=== PATIENT | male | born 1985 | race Caucasian/White ===

== ENCOUNTER 2020-03-21 02:43 | Emergency (ER) | payer OTHER ==
[2020-03-21 02:51] VITALS: PULSE 100
--- NOTE | 2020-03-21 03:28 | ERPHSYRPT ---
- History of Present Illness Time Seen by Provider: 03/21/20 03:05 Source: patient, police Exam Limitations: clinical condition Patient Subjective Stated Complaint: . Triage Nursing Assessment: . Physician History: This is a 35-year-old white male who is brought in by police for medical clearance for alf. Patient does use amphetamines by prescription. However, patient also has been consuming alcohol and operating a car vehicle. Patient denies any complaints at this time. He arrives vital signs are stable. Timing/Duration: today Severity: mild Associated Symptoms: denies symptoms Allergies/Adverse Reactions: No Known Drug Allergies Allergy (Unverified 03/21/20 02:59) Home Medications: Amphet Asp/Amphet/D-Amphet [Adderall Xr 30 mg Capsule] 30 mg PO DAILY 03/21/20 [History] Bupropion HCl [Bupropion Xl] 300 mg PO DAILY 03/21/20 [History] Liraglutide [Saxenda] 03/21/20 [History] Liraglutide [Victoza 2-Floyd] 03/21/20 [History] Lisdexamfetamine Dimesylate [Vyvanse] 70 mg PO DAILY 03/21/20 [History] Topiramate 100 mg PO DAILY 03/21/20 [History] Hx Tetanus, Diphtheria Vaccination/Date Given: Yes Hx Influenza Vaccination/Date Given: Yes (fall 2019) Hx Pneumococcal Vaccination/Date Given: No Immunizations Up to Date: Yes Travel Risk - International Travel Have you traveled outside of the country in past 3 weeks: No - Coronavirus Screening Are you exhibiting any of the following symptoms?: No Close contact with a COVID-19 positive Pt in past 14-21 Days: No - Review of Systems Constitutional: No Symptoms Eyes: No Symptoms Ears, Nose, & Throat: No Symptoms Respiratory: No Symptoms Cardiac: No Symptoms Abdominal/Gastrointestinal: No Symptoms Genitourinary Symptoms: No Symptoms Musculoskeletal: No Symptoms Skin: No Symptoms Neurological: Other (Intoxication) Psychological: Other (Intoxication) Endocrine: No Symptoms Hematologic/Lymphatic: No Symptoms Immunological/Allergic: No Symptoms All Other Systems: Reviewed and Negative - Past Medical History Pertinent Past Medical History: Yes Neurological History: No Pertinent History ENT History: No Pertinent History Cardiac History: No Pertinent History Respiratory History: No Pertinent History Endocrine Medical History: No Pertinent History Musculoskeletal History: No Pertinent History GI Medical History: No Pertinent History History: Other Psycho-Social History: Attention Deficit Disorder, Bipolar, Depression Male Reproductive Disorders: No Pertinent History Other Medical History: Kidney stones, skin cancer- basel cell carcinoma, psoriasis - Past Surgical History Past Surgical History: Yes Neuro Surgical History: No Pertinent History Cardiac: No Pertinent History Respiratory: No Pertinent History Gastrointestinal: No Pertinent History Genitourinary: No Pertinent History Musculoskeletal: No Pertinent History Male Surgical History: No Pertinent History Other Surgical History: skin CA removal - Social History Smoking Status: Never smoker Exposure to second hand smoke: No Drug Use: marijuana Patient Lives Alone: No - Nursing Vital Signs Nursing Vital Signs: Initial Vital Signs Temperature 97.7 F 03/21/20 02:49 Pulse Rate 100 H 03/21/20 02:49 Respiratory Rate 20 03/21/20 02:49 Blood Pressure 120/77 03/21/20 02:49 O2 Sat by Pulse Oximetry 100 03/21/20 02:49 Pain Scale Pain Intensity 0 - Physical Exam General Appearance: alert, anxiety Eye Exam: PERRL/EOMI, eyes nml inspection Ears, Nose, Throat Exam: normal ENT inspection, moist mucous membranes Neck Exam: normal inspection, non-tender, supple, full range of motion Respiratory Exam: normal breath sounds, lungs clear, airway intact, No chest tenderness, No respiratory distress Cardiovascular Exam: regular rate/rhythm, normal heart sounds, normal peripheral pulses Gastrointestinal/Abdomen Exam: soft, normal bowel sounds, No tenderness Rectal Exam: not done Back Exam: normal inspection, normal range of motion, No CVA tenderness, No vertebral tenderness Extremity Exam: normal inspection, normal range of motion, pelvis stable Neurologic Exam: alert, oriented x 3, cooperative, poster II-XII nml as tested, sensation nml, intoxicated appearance, other (Anxious and frustrated) Skin Exam: normal color, warm, dry Lymphatic Exam: No adenopathy SpO2 Interpretation: normal SpO2: 100 O2 Delivery: Room Air - Course Nursing assessment & vital signs reviewed: Yes Ordered Tests: Active Orders 24 hr Category Date Time Status Urine Triage Profile Stat Lab 03/21/20 03:20 Completed Lab/Rad Data: Laboratory Results 03/21/20 Range/Units 03:20 Urine Opiates Level NEGATIVE (NEGATIVE) Ur Methadone NEGATIVE (NEGATIVE) Urine Barbiturates NEGATIVE (NEGATIVE) Ur Phencyclidine (PCP) NEGATIVE (NEGATIVE) Urine Amphetamine POSITIVE (NEGATIVE) U Benzodiazepine Level NEGATIVE (NEGATIVE) Urine Cocaine NEGATIVE (NEGATIVE) Urine Marijuana (THC) POSITIVE (NEGATIVE) - Progress Progress: unchanged Counseled pt/family regarding: lab results, diagnosis - Departure Departure Disposition: Home Clinical Impression: Medical clearance for incarceration Condition: Stable Critical Care Time: No
[2020-03-21 03:44] LABS: Barbiturate,Urine NEGATIVE (NEGATIVE); Benzodiazepine,Urine NEGATIVE (NEGATIVE); Cocaine,Urine NEGATIVE (NEGATIVE); Methadone,Urine NEGATIVE (NEGATIVE); Opiate,Urine NEGATIVE (NEGATIVE); PCP,Urine NEGATIVE (NEGATIVE); THC,Urine POSITIVE (NEGATIVE)
[2020-03-21 03:57] LABS: Amphetamine,Urine POSITIVE (NEGATIVE)
[2020-03-21 04:08] VITALS: BP 128/82; O2SAT 93
== END 2020-03-21 04:15 | disposition home or self-care (01) ==
LOC: ED 02:43
DX: Z02.89 Encounter for other administrative examinations (principal); F15.90 Other stimulant use, unspecified, uncomplicated; Z72.89 Other problems related to lifestyle
CPT/HCPCS: 80307; 99283